=== PATIENT | female | born 1975 | race Caucasian/White ===

== ENCOUNTER → 2020-01-11 15:32 | Outpatient (CLI) | payer SELFPAY ==
[2016-05-17 06:41] VITALS: BMI 41.5
[2020-01-11 16:18] LABS: Estradiol 22.1 pg/mL
[2020-01-11 16:25] LABS: Progesterone Level 0.35 ng/mL (See Comment)
== END ==
PROVIDERS: PCP Family Medicine; Visit Provider Obstetrics & Gynecology
DX: N93.8 Other specified abnormal uterine and vaginal bleeding (principal)
CPT/HCPCS: 36415; 82670; 84144; 84403

== ENCOUNTER 2020-08-14 05:53 | Day surgery (SDC) | payer SELFPAY ==
[2020-08-14] VITALS (7 sets, daily range): BP systolic 103–128; BP diastolic 49–77; PULSE 78–90; RESP 16–18; TEMP 36.1–36.8; O2SAT 92–98; BMI 40.0
[2020-08-14 06:27] LABS: Internal QC Validated? YES +Cl - CLEAR BKGD; Pregnancy, Urine Negative Negative
[2020-08-14] MEDS: Lactated Ringers 1,000 ML 100 ML IV (06:53)
[2020-08-14] MEDS: Cefazolin 2 GM in 0.9% Normal Saline 100 ML IV (08:01)
[2020-08-14] MEDS: Epinephrine (1 mg/ml) 1 MG/ML VIAL (08:12)
[2020-08-14] MEDS: Bupiv/Epi 0.5% Mpf 30 ML Vial (08:57)
--- NOTE | 2020-08-14 10:57 | PCM.OPRPT ---
Report of Operation Date of Procedure: 08/14/20 Pre-Operative Diagnosis: SAIS, AC arthrosis, RCT and SLAP tear left shoulder Post-Operative Diagnosis: same Surgery/Procedure Performed:: ASD, Prabha procedure, RCR, intra-articular debridement left shoulder steam box tender: Clifton Araiza Type of Anesthesia:: General/Regional Anesthesiologist: Joel Mccabe - Niharika VTE Documentation VTE Present on Admission: No VTE Mechan Device Prophylaxis: SCD's, Thigh High OLESYA Hose VTE Pharm Prophylaxis ordered?: No Reason prophylaxis not ordered:: Treatment Not Indicated
== END 2020-08-14 12:35 | disposition home or self-care (01) ==
LOC: SDC 05:54 → AC 05:54
PROVIDERS: Anesthesiology; PCP Family Medicine; Referring Provider Orthopaedic Surgery; Visit Provider Orthopaedic Surgery
PROC: (CPT 29827; principal; 2020-08-14 07:10)
DX: S43.432A Superior glenoid labrum lesion of left shoulder, initial encounter (principal); S46.012A Strain of muscle(s) and tendon(s) of the rotator cuff of left shoulder, initial encounter; X58.XXXA Exposure to other specified factors, initial encounter; M19.012 Primary osteoarthritis, left shoulder; M75.42 Impingement syndrome of left shoulder; Z20.822 Contact with and (suspected) exposure to COVID-19; M79.7 Fibromyalgia; R01.1 Cardiac murmur, unspecified; Z87.891 Personal history of nicotine dependence
CPT/HCPCS: 01630; 29824; 29826; 29827; 64415; 76942; 81025; 87426; C9803; J7120; J2405